=== PATIENT | male | born 1965 | race Caucasian/White ===

== ENCOUNTER → 2016-09-08 | Outpatient (CLI) | payer SELFPAY ==
[2013-06-04 13:32] VITALS: BP 118/75
--- NOTE | 2016-09-08 13:45 | CT ---
HISTORY: Screening. Family history. Chest pain. Hypertension. Shortness of breath. Study: Cardiac calcium scoring. Technique: Multiple axial images of the chest were obtained on a [address] from the main pulmonary artery to the base of the heart. Noncontrast evaluation of the heart was performed for calcium scoring with prospective gating. Findings: A total calcium score of 0 is observed which is between the 0 and 25th percentile for male s between the ages of 50 and 54. This score implies no identifiable plaque with very low, generally less than 5%, risk of coronary artery disease. Extracardiac findings: No pathologically enlarged lymphadenopathy can be observed. No significant pericardial effusion can be identified. The visualized portions of the lung parenchyma are unremarkable. No lytic or blast ic lesions can be identified within the visualized bony thorax. IMPRESSION: Calcium score of 0. Reported By:
== END ==
LOC: RAD 12:47
PROVIDERS: ATTEND Nurse Practitioner
DX: Z13.6 Encounter for screening for cardiovascular disorders (principal)

== ENCOUNTER → 2016-10-11 | Outpatient (CLI) | payer BC ==
[2013-06-04 13:32] VITALS: BP 118/75
[2016-10-11 10:09] LABS: CREATININE 1.43 mg/dL (0.70-1.30)
--- NOTE | 2016-10-11 12:44 | MRI ---
MRI SPINE THORACIC WITHOUT AND WITH CONTRAST CLINICAL HISTORY: 51-year-old male with thoracic pain with twisting his torso. COMPARISON: Radiographs of the thoracic spine March 18, 2013. TECHNIQUE: Multiplanar, multisequence MRI images of the thoracic spine were obtained prior to and fo llowing the uneventful intravenous administration of contrast. FINDINGS: There is a normal thoracic kyphosis. Alignment is maintained. Vertebral body and intervertebral disc space height are normal. Probable hemangioma is within the right central T1 vertebral body and at the left pedicle T9. Remaining vertebral marrow and intervertebral disc signal are normal. Cord signal i s normal. There is no evidence of significant neural foraminal stenosis or canal compromise. There is no eviden ce of abnormal enhancement within the thoracic spine. Incompletely imaged lesion interposed between the right trapezius and latissimus measuring 1.8 x 3.3 x 3.5 cm with signal characteristics consistent with predominant fat composition. IMPRESSION: 1. Normal MRI of the thoracic spine. 2. Lesion interposed between the right latissimus and trapezius most consistent with lipoma, which ma y be the source of patient's discomfort. Reported By:
== END ==
LOC: RAD 09:36
PROVIDERS: ATTEND Nurse Practitioner
DX: R07.89 Other chest pain (principal)
CPT/HCPCS: 36415; 72157; 82565; 84520

== ENCOUNTER → 2017-03-28 | Outpatient (CLI) | payer BC ==
[2013-06-04 13:32] VITALS: BP 118/75
--- NOTE | 2017-03-28 10:41 | RAD ---
Examination: Chest, PA and lateral views History: SOB Findings: Normal appearance of heart, lungs, mediastinum and pleural spaces. Impression: No acute or significant chest Reported By:
== END ==
LOC: RAD 09:59
DX: R06.09 Other forms of dyspnea (principal)
CPT/HCPCS: 71046